=== PATIENT | female | born 1965 | race African-American/Black ===

== ENCOUNTER 2019-05-22 09:27 | Outpatient (CLI) | payer OTHER, SELFPAY ==
--- NOTE | ~2019-05-22 | MM_ITS ---
EXAMINATION: MM screening [facility] BI w lachelle HISTORY: Screening mammogram TECHNIQUE: Craniocaudal and mediolateral oblique 3-D tomosynthesis images were obtained and synthetic 2-D images were generated. CAD analysis was submitted and interpreted. COMPARISON: 11/01/2018, 05/15/2018, 05/13/2017, 05/10/2016 BREAST PARENCHYMAL COMPOSITION: The breasts are heterogeneously dense, which may obscure small masses . FINDINGS: There is no evidence of suspicious mass, calcification, or architectural distortion to sugg est malignancy in either breast. There has been no suspicious interval change. IMPRESSION: 1. No mammographic evidence of malignancy. 2. Recommend routine screening mammography in one year. BI-RADS Category 1: Negative Reviewed, dictated and finalized at location A. ANT COORDINATOR
== END 2019-05-22 09:28 | disposition home or self-care (01) ==
LOC: ANHIMG 09:30
PROVIDERS: PCP Family Medicine; Visit Provider Family Medicine
DX: Z12.31 Encounter for screening mammogram for malignant neoplasm of breast (principal)
CPT/HCPCS: 77063; 77067

== ENCOUNTER 2020-08-28 08:02 | Outpatient (CLI) | payer OTHER, SELFPAY ==
--- NOTE | ~2020-08-28 | MM_ITS ---
EXAMINATION: MM screening [facility] BI w lachelle HISTORY: Screening mammogram TECHNIQUE: Craniocaudal and mediolateral oblique 3-D tomosynthesis images were obtained and synthetic 2-D images were generated. CAD analysis was submitted and interpreted. COMPARISON: 05/22/2019 bilateral digital screening mammogram 11/15/2018 complete right breast ultrasound examination 11/01/2018 bilateral diagnostic digital mammogram 05/15/2018, 05/13/2017, bilateral digital screening mammogram examinations BREAST PARENCHYMAL COMPOSITION: The breasts are heterogeneously dense, which may obscure small masses . FINDINGS: There is evidence of bilateral breast circumscribed masses, apparently more numerous and la rger on the right. Bilateral breast ultrasound examination is recommended. IMPRESSION: 1. Bilateral breast masses 2. Bilateral breast ultrasound examination is recommended BI-RADS Category 0: Incomplete: Needs additional imaging evaluation. Reviewed, dictated and finalized at location A.
== END 2020-08-28 08:03 | disposition home or self-care (01) ==
PROVIDERS: PCP Family Medicine; Visit Provider Nurse Practitioner Family
DX: Z12.31 Encounter for screening mammogram for malignant neoplasm of breast (principal); R92.8 Other abnormal and inconclusive findings on diagnostic imaging of breast
CPT/HCPCS: 77063; 77067

== ENCOUNTER 2020-10-03 09:45 | Outpatient (CLI) | payer OTHER, SELFPAY ==
--- NOTE | ~2020-10-03 | US_ITS ---
US breast BI limited 10/03/2020 10:48 Indication: Bilateral breast masses seen on recent mammogram. Procedure: High-resolution complete bilateral breast ultrasound Comparison: Comparison to multiple prior studies sequentially, with oldest reviewed study dated 05/01. Findings: Consider further evaluation with MRI. There are innumerable cystic, mixed cystic and solid, solid and tubular shaped masses throughout both breasts with similar appearance to previous ultrasou nd dated 11/15/2018, although due to the number of abnormalities interval change cannot be assessed. Impression: 1: Innumerable bilateral breast masses of varying characteristics making it difficult to assess for i nterval change from prior examination. Recommend MRI of the breast to assess for abnormal focal enhan cement. BI-RADS CATEGORY 0 - INCOMPLETE STUDY, NEED ADDITIONAL IMAGING EVALUATION. Reviewed, dictated and finalized at location A. Impression: 1: Innumerable bilateral breast masses of varying characteristics making it dif ficult to assess for interval change from prior examination. Recommend MRI of t he breast to assess for abnormal focal enhancement. BI-RADS CATEGORY 0 - INCOMPLETE STUDY, NEED ADDITIONAL IMAGING EVALUATION.
== END 2020-10-03 09:46 | disposition home or self-care (01) ==
PROVIDERS: PCP Family Medicine; Visit Provider Family Medicine
DX: R92.8 Other abnormal and inconclusive findings on diagnostic imaging of breast (principal)
CPT/HCPCS: 76642

== ENCOUNTER 2024-09-27 00:56 | Day surgery (SDC) | payer OTHER, SELFPAY ==
[2024-09-10 14:21] VITALS: BMI 31.0
--- NOTE | 2024-09-27 07:49 | P.PNAN_ITS ---
Anes - Initial Pre Proc Eval Procedure: Operation Date: 09/27/24 11:00 Proposed Procedures p Screening Colonoscopy - Román Sears MD Date/Time: 09/27/24 07:49 Surgeon: Román Sears MD Pre Op Diagnosis: Neoplasm Screening Patient Data Age: 58 Gender: F Height: 1.65 m Weight: 84.54 kg Allergies Allergy/AdvReac Type Severity Reaction Status Date / Time No Known Allergies Allergy Mild Verified 09/10/24 14:13 Home Medications ?Medication ?Instructions ?Recorded ?Confirmed ?Type aspirin 81 mg tablet,delayed 81 mg PO DAILY 09/10/24 09/27/24 History release atenolol 100 mg tablet 100 mg PO DAILY 09/10/24 09/27/24 History atorvastatin 10 mg tablet 10 mg PO DAILY 09/10/24 09/27/24 History cholecalciferol (vitamin D3) 50 50 mcg PO DAILY 09/10/24 09/27/24 History mcg (2,000 unit) capsule hydrochlorothiazide 25 mg tablet 25 mg PO DAILY 09/10/24 09/27/24 History insulin glargine 100 unit/mL (3 30 unit subcut QPM 09/10/24 09/27/24 History mL) subcutaneous pen (Lantus Solostar U-100 Insulin) latanoprost 0.005 % eye drops 1 drp EACH EYE QPM 09/10/24 09/27/24 History lisinopril 40 mg tablet 40 mg PO DAILY 09/10/24 09/27/24 History metformin 500 mg tablet 500 mg PO DAILY 09/10/24 09/27/24 History mirtazapine 15 mg tablet 15 mg PO DAILY 09/10/24 09/27/24 History pantoprazole 40 mg tablet,delayed 40 mg PO DAILY 09/10/24 09/27/24 History release paroxetine HCl 20 mg tablet 20 mg PO DAILY 09/10/24 09/27/24 History tamoxifen 20 mg tablet 20 mg PO DAILY 09/10/24 09/27/24 History ziprasidone HCl 80 mg capsule 80 mg PO DAILY 09/10/24 09/27/24 History Patient hx anesthesia problems: none Family hx anesthesia problems: none Results Review: All pre-operative results and documents have been reviewed as part of the pre- operative evaluation. [facility] Past Medical History Medical History (Updated 09/27/24 @ 07:50 by Ryan Zamora DO) Breast cancer 2021 Diabetes type 2, controlled GERD (gastroesophageal reflux disease) Hyperlipidemia Hypertension Social History Social History Smoking status: Never smoker Alcohol intake: never Substance use: never Substance use type: does not use Living arrangements: with family Spiritual care concerns: No Anes - Eval Final PreProcedure Day of Procedure 09/27/24 07:49 Patient weight: obese Heart: regular rate and rhythm Lungs: clear to auscultation Airway: Mallampati scale class II Neurological: alert and oriented Last oral intake: >/= 8 hours ASA classification: III Emergent: no Anesthetic plan: proceed Anesthesia type and monitoring: general GIVS and standard monitoring Results Review: All pre-operative results and documents have been reviewed as part of the pre- operative evaluation. Informed Consent: The patient's anesthetic plan and its attendant risks and benefits were discussed with the patient/family/POA. Questions were solicited and answers provided to the satisfaction of the patient/family/POA.
[2024-09-27 09:53] VITALS: BP 144/90; PULSE 71; RESP 18; TEMP 37.1; O2SAT 100
[2024-09-27] MEDS: LACTATED RINGERS 1,000 ML 150 ML IV CONT (10:00)
[2024-09-27 10:43] LABS: Glucose Point of Care 189 mg/dl (65-105)
--- NOTE | 2024-09-27 10:47 | PM.IMHP ---
H&P: HPI History of Present Illness Date/Time: 09/27/24 10:47 Chief Complaint: Screening colonoscopy Narrative: This is the patient's 2nd colonoscopy. There are no GI symptoms and there is no family history of colorectal cancer. Review of Systems Review of Systems: All systems reviewed & are unremarkable except as noted in HPI and below PMFSH Past Medical History Medical History (Updated 09/27/24 @ 10:47 by Román Sears MD) Breast cancer 2021 Diabetes type 2, controlled GERD (gastroesophageal reflux disease) Hyperlipidemia Hypertension Social History Social History Smoking status: Never smoker Alcohol intake: never Substance use: never Substance use type: does not use Living arrangements: with family Spiritual care concerns: No Meds Home Medications and Allergies Home Medications ?Medication ?Instructions ?Recorded ?Confirmed ?Type aspirin 81 mg tablet,delayed 81 mg PO DAILY 09/10/24 09/27/24 History release atenolol 100 mg tablet 100 mg PO DAILY 09/10/24 09/27/24 History atorvastatin 10 mg tablet 10 mg PO DAILY 09/10/24 09/27/24 History cholecalciferol (vitamin D3) 50 50 mcg PO DAILY 09/10/24 09/27/24 History mcg (2,000 unit) capsule hydrochlorothiazide 25 mg tablet 25 mg PO DAILY 09/10/24 09/27/24 History insulin glargine 100 unit/mL (3 30 unit subcut QPM 09/10/24 09/27/24 History mL) subcutaneous pen (Lantus Solostar U-100 Insulin) latanoprost 0.005 % eye drops 1 drp EACH EYE QPM 09/10/24 09/27/24 History lisinopril 40 mg tablet 40 mg PO DAILY 09/10/24 09/27/24 History metformin 500 mg tablet 500 mg PO DAILY 09/10/24 09/27/24 History mirtazapine 15 mg tablet 15 mg PO DAILY 09/10/24 09/27/24 History pantoprazole 40 mg tablet,delayed 40 mg PO DAILY 09/10/24 09/27/24 History release paroxetine HCl 20 mg tablet 20 mg PO DAILY 09/10/24 09/27/24 History tamoxifen 20 mg tablet 20 mg PO DAILY 09/10/24 09/27/24 History ziprasidone HCl 80 mg capsule 80 mg PO DAILY 09/10/24 09/27/24 History Allergies Allergy/AdvReac Type Severity Reaction Status Date / Time No Known Allergies Allergy Mild Verified 09/10/24 14:13 Vital Signs Vital Signs - 24 hr 09/27/24 09:53 Temperature 98.7 F Pulse Rate 71 Respiratory Rate 18 Blood Pressure 144/90 H Pulse Oximetry 100 Oxygen Delivery Room Air Exam Const: General: cooperative and healthy appearing Resp: Effort & Inspection: normal respiratory effort and able to speak in complete sentences Auscultation: clear to auscultation bilaterally Cardio: Rate: regular rate Rhythm: regular rhythm GI: Inspection: normal to inspection GI Palp: No No hepatosplenomegaly present Auscultation: normal bowel sounds Rectal Exam: deferred Skin: General skin exam: normal color Psych: Appearance: grossly normal Mental Status: mental status grossly normal Assessment and Plan Assessment and plan (1) Encounter for screening colonoscopy: Code(s): Z12.11 - Encounter for screening for malignant neoplasm of colon Status: Acute Assessment and Plan: The patient is deemed a good candidate for the procedure. Consent signed. Will proceed.
[2024-09-27] MEDS: SIMETHICONE ORAL SUSPENSION 20 MG/0.3 ML 30 ML BOTTLE 0.6 ML IRRIGATION (10:54)
[2024-09-27 11:07] VITALS: BP 102/61; PULSE 64; RESP 16; O2SAT 96
[2024-09-27 11:17] VITALS: BP 100/63; PULSE 61; RESP 17; O2SAT 98
[2024-09-27 11:27] VITALS: BP 125/84; PULSE 64; RESP 14; O2SAT 100
[2024-09-27 11:27] LABS: Glucose Point of Care 160 mg/dl (65-105)
== END 2024-09-27 11:38 | disposition home or self-care (01) ==
PROVIDERS: PCP Physician Assistant; Referring Provider Physician Assistant; Visit Provider Internal Medicine Gastroenterology
PROC: 0DJD8ZZ Inspection of Lower Intestinal Tract, Via Natural or Artificial Opening Endoscopic (ICD-10-PCS; CPT 45378; principal; 2024-09-27 11:00)
DX: Z12.11 Encounter for screening for malignant neoplasm of colon (principal); E11.9 Type 2 diabetes mellitus without complications; K21.9 Gastro-esophageal reflux disease without esophagitis; E78.5 Hyperlipidemia, unspecified; I10 Essential (primary) hypertension; E66.9 Obesity, unspecified; Z68.30 Body mass index [BMI] 30.0-30.9, adult; Z79.82 Long term (current) use of aspirin; Z79.4 Long term (current) use of insulin; Z79.84 Long term (current) use of oral hypoglycemic drugs; Z79.810 Long term (current) use of selective estrogen receptor modulators (SERMs); Z85.3 Personal history of malignant neoplasm of breast
CPT/HCPCS: 45378; 82948; J2003; J2704; J7120